=== PATIENT | female | born 1950 | race Caucasian/White ===

== ENCOUNTER → 2017-01-18 | Outpatient (CLI) | payer MEDICARE, OTHER ==
[~2017-01-18] MED LIST: ADVAIR 100-501 EACH INH; ADVAIR HFA 115-28 GM INH; ATROVENT INH S2.5 ML INH; CALCIUM600 MG PO; CEFTIN500 MG PO; CYMBALTA 30 MG30 MG PO; DULOXETINE HCL60 MG PO; DURAGESIC 50 MCG1 EA TOP; ELAVIL 25 MG TA25 MG PO; HABITROL 21 MG P1 EA TD; ISOSORBIDE MONO30 MG PO; KLONOPIN TAB 00.5 MG PO; LEVAQUIN750 MG PO; LOPRESSOR 25 MG25 MG PO; MEDROL DOSEPAK 24 MG PO; NEURONTIN 300300 MG PO; NEURONTIN 400400 MG PO; PERCOCET 10-321 EACH PO; SEROQUEL50 MG PO; TYLENOL 325MG325 MG PO; TYLENOL 650 MG650 MG PR; VENTOLIN HFA8 GM INH; VENTOLIN/PROVE0.5 ML INH; VITAMIN B-121000 MCG PO
== END ==
LOC: EMI 16:00
DX: G44.039 Episodic paroxysmal hemicrania, not intractable (principal)
CPT/HCPCS: 70551

== ENCOUNTER → 2017-06-29 | Outpatient (CLI) | payer MEDICARE, OTHER ==
[2017-06-29 18:16] LABS: HEMOGLOBIN 12.1 gm/dl (12.3-15.3); RED BLOOD COUNT 3.96 M/UL (4.00-5.10); WHITE BLOOD COUNT 6.7 K/UL (4.5-11.0)
== END ==
LOC: LAB 17:37
PROVIDERS: Internal Medicine Cardiovascular Disease
DX: I48.0 Paroxysmal atrial fibrillation (principal); I20.9 Angina pectoris, unspecified; R06.02 Shortness of breath; R94.39 Abnormal result of other cardiovascular function study; J44.9 Chronic obstructive pulmonary disease, unspecified; I70.0 Atherosclerosis of aorta
CPT/HCPCS: 36415; 71020; 80048; 85025

== ENCOUNTER → 2017-07-01 | Outpatient (CLI) | payer MEDICARE, OTHER | LOC: CATH 06:58 | DX: I20.9 Angina pectoris, unspecified (principal); R94.39 Abnormal result of other cardiovascular function study; I48.0 Paroxysmal atrial fibrillation; R06.02 Shortness of breath; I49.3 Ventricular premature depolarization; J44.9 Chronic obstructive pulmonary disease, unspecified; G25.0 Essential tremor; G62.9 Polyneuropathy, unspecified; M81.0 Age-related osteoporosis without current pathological fracture; M12.88 Other specific arthropathies, not elsewhere classified, other specified site; F32.9 Major depressive disorder, single episode, unspecified; F41.9 Anxiety disorder, unspecified; F17.200 Nicotine dependence, unspecified, uncomplicated; Z98.890 Other specified postprocedural states; Z88.2 Allergy status to sulfonamides; Z79.82 Long term (current) use of aspirin; Z79.891 Long term (current) use of opiate analgesic; Z79.899 Other long term (current) drug therapy | CPT/HCPCS: 99152; C1769; C1894; J1644; J2250; J3010; J7030; Q0163; Q9965 ==